=== PATIENT | female | born 1975 | race African-American/Black ===

== ENCOUNTER → 2018-04-11 | Day surgery (SDC) | payer OTHER ==
[~2018-04-11] MED LIST: COLACE100 MG PO; DEXILANT60 MG PO; FERROUS SULFAT325 MG PO; KETAMINE HCL INJ 50 MG/ML 10 ML VIAL ONE; LIDOCAINE HCL 2% LOCAL INJ 5 ML SDV VIAL INJ ONE; LINZESS PO; METOCLOPRAMIDE HCL 10 MG/2ML VIAL ONE; MIDAZOLAM HCL 2 MG/2 ML VIAL ONE; PANTOPRAZOLE 40 MG 10ML VIAL ONE; PANTOPRAZOLE SO40 MG PO; PREVPAC PATIEN1 EACH PO; PROPOFOL IV EMULSION 10 MG/ML 20 ML VIAL ONE
--- OUTSIDE RECORDS SUMMARY | 2018-04-11 09:59 | XMS REPORT | Clinical Summary ---
Author Author [facility] Address Unknown Phone Unavailable Care Team Providers Care [employer] T[employer] Name Role Phone Dheeraj Silveira MD PCP Allergies No Known Allergies Medications End Date Status Medication Sig Dispensed Refills Start Date Active pantoprazole (PROTONIX) Take 40 mg by 0 40 MG tablet mouth 2 (two) times daily. Active Problems Problem Noted Date Anemia 09/14/2014 Ectopic 09/14/2014 Social History Date Tobacco Use Types Packs/Day Years Used Never Smoker Alcohol Use Drinks/Week oz/Week Comments No Sex Assigned at Date Recorded Not on file Industry Job Start Date Occupation Not on file Not on file Not on file Travel End Travel History Travel Start No recent travel history available. Last Filed Vital Signs Not on file Plan of Treatment Not on file Implants Device Identifier Shelf Expiration Date Model / Serial / Lot Implanted Type Area Manufactur er 03/07/2019 [id number] / / [id number] Hemostat,Lindsey Ah Absorbable Cement/Nikhil C R BARD Powder 3g - [id number] ler/Adhesi DAVOL Implanted: Qty: 1 on 09/15/2014 by Lay Grijalva, Results Not on fileafter 04/10/2017 Insurance Payer Benefit Subscriber ID Type Phone Address Plan / Group MEDICAID - MEDICAID MGD MEDICAID xxxxxxxxx Medicaid [employer] Non-Contra cted Advance Directives For more information, please contact: [facility] [address] [place] [address] [phone] Date Inactivated Comments Code Status Date Activated 09/16/2014 1:15 AM Full Code 09/14/2014 6:17 PM This code status was determined by: Patient
[2018-04-11 15:47] VITALS: BP 134/79
--- NOTE | 2018-04-11 16:37 | Diagnostic Imaging Report ---
Examination: Single AP view of the chest. COMPARISON: None. INDICATION: Status post EGD with dilatation DISCUSSION: Lung volumes are low with vascular crowding in the lung bases. No consolidation, pleural effusion, or pneumothorax. Normal cardiomediastinal contour when accounting for suboptimal inspiratory effort and AP technique. No acute osseous abnormality. IMPRESSION: Low lung volumes without acute cardiopulmonary abnormality. Signed by: Dr. Major Grimm M.D. on 04/11/2018 4:33 PM
--- NOTE | 2018-04-11 22:56 | Operative Report ---
DATE OF PROCEDURE: 04/11/2018 SURGEON: Jacky Fernandez MD PROCEDURE: Esophagogastroduodenoscopy with esophageal dilatation over a wire and biopsies. INDICATIONS FOR PROCEDURE: Dysphagia. MEDICATIONS: The patient was done under MAC. Please see anesthesiologist's note. PROCEDURE IN DETAIL: With the patient in the left lateral decubitus position, a flexible fiberoptic Olympus gastroscope was introduced into the esophagus under direct visualization without any difficulty. A tight web was noted just below the upper esophageal sphincter and it could not be traversed with the scope. It was then dilated over a wire to size #14 Savary. The scope was then reintroduced into the esophagus and some concentric rings were noted in the esophagus that were suspicious for eosinophilic esophagitis and biopsies were obtained. Also, some tears in the mucosa were noted, were somewhat deep in the mid esophagus as well as in the cervical esophagus. The scope was then advanced with ease into the stomach. Mucosa overlying the antrum and the body revealed some patchy erythema and low-grade to moderate edema. Biopsies were obtained and sent to stain for Helicobacter pylori. Pylorus was of normal contour and shape, was intubated with ease and the scope was advanced all the way to the 2nd portion of the duodenum. The scope was then withdrawn slowly. Mucosa overlying the proximal 2nd portion and the duodenal bulb appeared to be within normal limits. The scope was then withdrawn back into the stomach and retroflexed. Mucosa overlying the fundus and cardia appeared to be within normal limits. The scope was then straightened out, it was subsequently withdrawn. The patient tolerated procedure well. IMPRESSION: 1. 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 2. Rule out eosinophilic esophagitis. 3. Gastritis biopsied, biopsies sent to stain for Helicobacter pylori. PLAN: Followup histology. Increase Dexilant to 60 mg one p.o. a.c. b.i.d. and initiate a wheat and milk-free diet until the biopsies are back. Jacky Fernandez MD [facility] [place] /[id number] cc: Judd Cope MD
== END | disposition home or self-care (01) ==
LOC: OR 09:54
PROVIDERS: ATTEND Internal Medicine Gastroenterology
DX: Q39.4 Esophageal web (principal); K20.9 Esophagitis, unspecified; R13.14 Dysphagia, pharyngoesophageal phase; K29.50 Unspecified chronic gastritis without bleeding; K44.9 Diaphragmatic hernia without obstruction or gangrene; K58.1 Irritable bowel syndrome with constipation; R03.0 Elevated blood-pressure reading, without diagnosis of hypertension
CPT/HCPCS: 43239; 43453; 71045; 81025; C9113; J2001; J2704; J2765; 43450